=== PATIENT | female | born 1960 | race Caucasian/White ===

== ENCOUNTER 2019-06-26 13:06 | Emergency (ER) | payer OTHER ==
--- OUTSIDE RECORDS SUMMARY | 2019-06-26 13:12 | XMS REPORT | Continuity of Care Document ---
:1960 External Reference #:[id number] Author Name Josefa Barajas M.D. (transmitted by agent of provider Jossy Evans) Address [address] [place] [address] Care Team Providers Name Role Phone Esme Shepherd MD - Family Care Team Information [employer] [phone] Medicine Problems Description No Information Available Social History Type Date Description Comments Sex Unknown ETOH Use Denies alcohol use Tobacco Use Start: Unknown Patient has never smoked Smoking Status Reviewed: 05/03/19 Patient has never smoked Exercise Type/Frequency Does not exercise Allergies, Adverse Reactions, Alerts Active Allergies Reaction Severity Comments Date Demerol 11/13/2015 Medications Active Medications SIG Qnty Indications Ordering Provider Date Wellbutrin XL 1 by mouth every Unknown 300mg Tablets day ER 24HR Sertraline HCL 1 by mouth every Unknown 50mg Tablets day Medications Administered in Office Medication SIG Qnty Indications Ordering Provider Date Depomedrol 40MG Josefa Barajas M.D. 05/03/2019 Injection Depomedrol 40MG Josefa Barajas M.D. 05/03/2019 Injection Depomedrol 40MG Josefa Barajas M.D. 11/25/2016 Injection Depomedrol 40MG Josefa Barajas M.D. 04/07/2016 Injection Depomedrol 40MG PRAMOD Garza 11/13/2015 Injection Celestone 3 mg and 3mg Catalina Baker, 09/25/2010 Injection M.DGladis Immunizations Description No Information Available Vital Signs Date Vital Result Comment 05/03/2019 11:23am Height 68 inches 5'8" Weight 208.00 lb Heart Rate 53 /min BP Systolic 128 mmHg BP Diastolic 72 mmHg Body Temperature 97.6 F Pain Level 2 BMI (Body Mass Index) 31.6 kg/m2 11/25/2016 1:39pm Height 68 inches 5'8" Weight 230.00 lb Heart Rate 88 /min BP Systolic 126 mmHg BP Diastolic 76 mmHg Respiratory Rate 20 /min Body Temperature 97.9 F Pain Level 3 BMI (Body Mass Index) 35.0 kg/m2 Results Description No Information Available Procedures Date Code Description Status 05/03/2019 90098 Inject/Drain Joint/Bursa Small W/O US Completed 05/03/2019 24000 Inject Tendon Sheath Or Ligament Aponeurosis Eg Plantar Completed Fascia Medical Devices Description No Information Available Encounters Description No Information Available Assessments Date Code Description Provider 05/03/2019 M65.341 Trigger finger, right ring finger Josefa Barajas M.D. 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 Plan of Treatment 05/03/2019 - Josefa Barajas M.D.M65.341 Trigger finger, right ring fingerFollow up:Follow up: As rktalsL97.12 Unilateral primary osteoarthritis of first carpometacarpal joint, left handNew Xrays:Thumb Left, Ordered: M54.31 Sciatica, right sideReferral:Dewayne Wagner MD, Surgery, NeurologicalFollow up:Follow up: Functional Status Description No Information Available Mental Status Description No Information Available Referrals Refer to Reason for Referral Status Appt Date Dewayne Wagner MD right back/leg pain, numbness Created [address] [place] [phone]
[2019-06-26 13:19] VITALS: BP 130/82
--- NOTE | 2019-06-26 13:33 | UC ---
Minor Trauma HPI - HPI Summary HPI Summary: 59-year-old female who fell onto her right side on Tuesday night 4 days ago. She had some soreness to her right mid ribs but she has difficulty pinpointing the area today. She denies any shortness of breath. Did not hit her head nor does she complain of any neck pain. She says that she turned "just the right way" and had some pain in the right mid rib area. - History of Current Complaint Chief Complaint: UCTrauma Stated Complaint: RIGHT SIDE PAIN Time Seen by Provider: 06/26/19 13:15 Hx Obtained From: Patient ?: No Onset/Duration: Sudden Onset Onset Of Pain: Immediate Severity Initially: Moderate Severity Currently: Mild Pain Intensity: 5 Mechanism Of Injury: Fall From A Standing Position Aggravating Factor(s): Movement - If the patient moves "just serrate way" and she feels some pain to the right mid rib area. Alleviating Factor(s): Rest Associated Signs And Symptoms: Negative: Loss Of Consciousness, Ecchymosis, Swelling - Allergies/Home Medications Allergies/Adverse Reactions: Allergies Allergy/AdvReac Type Severity Reaction Status Date / Time meperidine Allergy Vomiting Verified 06/26/19 13:19 PMH/Surg Hx/FS Hx/Imm Hx Previously Healthy: Yes - Surgical History Surgical History: Yes Surgery Procedure, Year, and Place: gastric bypass surgery 2008 - Family History Known Family History: Positive: Non-Contributory - Social History Alcohol Use: None Substance Use Type: Marijuana Substance Use Comment - Amount & Last Used: occasionally Smoking Status (MU): Former Smoker When Did the Patient Quit Smoking/Using Tobacco: 30 yrs Review of Systems All Other Systems Reviewed And Are Negative: Yes Skin: Negative: Bruising Respiratory: Negative: Shortness Of Breath, Cough Musculoskeletal: Positive: Other: - Mild right mid rib pain, patient is unable to pinpoint the area of pain with palpation. Is Patient Immunocompromised?: No Physical Exam Triage Information Reviewed: Yes Appearance: Well-Appearing, No Pain Distress, Well-Nourished Vital Signs: Initial Vital Signs Temp 97.3 F 06/26/19 13:13 Pulse 45 06/26/19 13:13 Resp 16 06/26/19 13:13 BP 130/82 06/26/19 13:13 Pulse Ox 96 06/26/19 13:13 Vital Signs Reviewed: Yes Respiratory: Positive: Chest non-tender, Lungs clear, Normal breath sounds, No respiratory distress Cardiovascular: Positive: RRR, No Murmur, Pulses Normal, Brisk Capillary Refill Abdomen Description: Positive: Nontender, No Organomegaly, Soft. Negative: CVA Tenderness (R), CVA Tenderness (L), Distended, Guarding, Hepatomegaly, Splenomegaly Bowel Sounds: Positive: Present Musculoskeletal Exam: Normal Musculoskeletal: Positive: Other: - No bruising, erythema, deformity or swelling is noted. No crepitus. We are unable to locate the exact point of rib tenderness. Neurological Exam: Normal Psychological Exam: Normal Skin Exam: Normal Minor Trauma Course/Dx - Course Course Of Treatment: Rib x-rays:FINDINGS: There is a focal area of cortical irregularity in the right anterolateral fifth rib possibly representing a nondisplaced fracture. The heart is within normal limits in size. The lungs are clear. There is no evidence for pneumothorax or pleural effusion. IMPRESSION: POSSIBLE NONDISPLACED FRACTURE OF THE RIGHT ANTEROLATERAL FIFTH RIB, RECOMMEND CLINICAL CORRELATION FOR POINT TENDERNESS. Patient is comfortable here and in no distress. - Differential Dx/Diagnosis Provider Diagnosis: Fracture, rib Discharge ED - Sign-Out/Discharge Documenting (check all that apply): Patient Departure All imaging exams completed and their final reports reviewed: Yes - Discharge Plan Condition: Good Disposition: HOME Patient Education Materials: Rib Fracture (ED) Referrals: Esme Shepherd MD [Primary Care Provider] - Marry Quintero MD [Medical Doctor] - Additional Instructions: May take Tylenol every 4 hours and alternate with Motrin every 8 hours for pain. Avoid movements that cause pain. May apply heat to the sore area. Go to the emergency room if you develop any difficulty breathing or worsening symptoms. Follow-up with the orthopedist in 4 or 5 days for further care, you may want to call and make an appointment to be seen. - Billing Disposition and Condition Condition: GOOD Disposition: Home
== END 2019-06-26 14:04 | disposition home or self-care (01) ==
LOC: UCEAST 13:06
DX: S22.31XA Fracture of one rib, right side, initial encounter for closed fracture (principal); Z88.5 Allergy status to narcotic agent; Z87.891 Personal history of nicotine dependence; W19.XXXA Unspecified fall, initial encounter; Y92.9 Unspecified place or not applicable
CPT/HCPCS: 99211; G0463

== ENCOUNTER 2020-05-15 12:09 | Inpatient (IN) ==
[2020-05-15 13:53] LABS: ABS Eosinophils 0.1 10^3/ul (0-0.6); ABS Lymphocytes 1.1 10^3/ul (1.0-4.8); ABS Monocytes 0.6 10^3/ul (0-0.8); Eosinophil % 0.4 %; Hematocrit 35 % (35-47); Hemoglobin 11.7 g/dL (12.0-16.0); Lymphocyte % 7.4 %; Mean Corpuscular HGB Conc 34 g/dL (31-36); Mean Corpuscular Hemoglobin 31 pg (27-31); Mean Corpuscular Volume 94 fL (80-97); Platelet Count 274 10^3/uL (150-450); Red Blood Count 3.72 10^6 /uL (3.70-4.87); Red Cell Distribution Width 14 % (10-15); White Blood Count 14.8 10^3/uL (3.5-10.8)
[2020-05-15] MEDS ORDERED: Lactated Ringers 1000 ml BAG 1,000 ML IV SCH (14:00)
[2020-05-15 14:10] LABS: Lipase < 10 U/L (11.0-82.0)
[2020-05-15] MEDS: Ondansetron 4 mg VIAL 2 MG/ML 2 ml VIAL IV PRN ×2 (14:38→20:42)
[2020-05-15] MEDS: HYDROmorphone 1 MG/1 ML SYRINGE IV SLOW PU PRN ×2 (14:38→20:27)
[2020-05-15 14:58] LABS: Albumin 3.7 g/dL (3.2-5.2); Anion Gap 7 mmol/L (2-11); CO2 Carbon Dioxide 23 mmol/L (22-32); Calcium 8.8 mg/dL (8.6-10.3); Chloride 106 mmol/L (101-111); Indirect Bilirubin 0.6 mg/dL (0.3-1.0); Potassium 3.9 mmol/L (3.5-5.0); Sodium 136 mmol/L (135-145)
[2020-05-15 15:03] LABS: Blood Urea Nitrogen 15 mg/dL (6-24); Glucose 100 mg/dL (70-100)
[2020-05-15 15:04] LABS: ALT 16 U/L (7-52); AST 16 U/L (13-39); Albumin/Globulin Ratio 1.8 (1-3); Alkaline Phosphatase 48 U/L (34-104); BUN/Creatinine Ratio 28.3 (8-20); EGFR African American 143.4 (>60); EGFR Non-African American 118.5 (>60); Globulin 2.1 g/dL (2-4); Total Protein 5.8 g/dL (6.4-8.9)
[2020-05-15] MEDS ORDERED: Iohexol 300 (CONTRAST) 10 ML SDV IV ONE (19:07)
[2020-05-15 19:14] LABS: Urine Appearance Clear; Urine Bilirubin Negative (Negative); Urine Blood 1+ (Negative); Urine Color Yellow; Urine Glucose Negative (Negative); Urine Ketones Negative (Negative); Urine Nitrite Negative (Negative); Urine Protein Negative (Negative); Urine Specific Gravity 1.013 (1.010-1.030); Urine Urobilinogen Negative (Negative)
[2020-05-15 19:21] LABS: Urine Bacteria Absent (Absent); Urine Red Blood Cell 1+(3-5/hpf) (Absent); Urine Squamous Epithelial Cell Present (Absent); Urine White Blood Cell Absent (Absent)
[2020-05-15] MEDS ORDERED: Piperacillin/Tazobac ADVAN 3.375 GM in NS 0.9% 100 ml BAG 100 ML IV ONE (20:13)
[2020-05-15] MEDS: D5W 1/2 NS 1000 ml BAG 1,000 ML IV SCH (20:58)
[2020-05-15] MEDS ORDERED: Zosyn per Pharmacy NOTE FOLLOW UP SCH (21:00)
[2020-05-15] MEDS ORDERED: Rocuronium 50 mg VIAL 10 mg/ml 5 ml VIAL (50 mg) ONE (21:28)
[2020-05-15] MEDS ORDERED: Propofol 10 MG/ML 20 ML BTL ONE (21:28)
[2020-05-15] MEDS ORDERED: fentaNYL 100 mcg/2 ml 50 MCG/ML VIAL ONE (21:30)
[2020-05-15] MEDS ORDERED: Lidocaine 2% PF 5 ML VIAL ONE (21:32)
[2020-05-15] MEDS ORDERED: Bupivacaine 0.25% SDV 30 ML ONE (21:35)
[2020-05-15] MEDS ORDERED: DiMENhydriNATE IV 50 mg/ml 1 ml VIAL IV PUSH PRN (21:51)
[2020-05-15] MEDS ORDERED: Naloxone 0.4 mg VIAL 0.4 mg/ml 1 ml VIAL IV PRN (21:51)
[2020-05-15] MEDS ORDERED: fentaNYL 100 mcg/2 ml 50 MCG/ML VIAL IV PRN (21:51)
[2020-05-15] MEDS ORDERED: Pantoprazole VIAL 40 MG VIAL IV SCH (22:00)
[2020-05-15] MEDS ORDERED: Methylene Blue 0.5 % 50 MG/10 ML AMP IV ONE (22:45)
[2020-05-16] MEDS ORDERED: Ondansetron 4 mg VIAL 2 MG/ML 2 ml VIAL ONE ×2 (00:21→14:47)
[2020-05-16] MEDS: Ondansetron 4 mg VIAL 2 MG/ML 2 ml VIAL IV PRN ×3 (00:22→17:04)
[2020-05-16] MEDS: HYDROmorphone 1 MG/1 ML SYRINGE IV SLOW PU PRN ×4 (01:47→20:40)
[2020-05-16] MEDS: D5W 1/2 NS 1000 ml BAG 1,000 ML IV SCH ×3 (01:47→17:14)
[2020-05-16] MEDS: ZOSYN 3.375 GM Q8H per EXTENDED INFUSION IV SCH ×3 (01:55→17:09)
[2020-05-16 06:20] LABS: ABS Lymphocytes 0.6 10^3/ul (1.0-4.8); ABS Monocytes 0.3 10^3/ul (0-0.8); ABS Neutrophils 11.8 10^3/ul (1.5-7.7); Hematocrit 21 % (35-47); Hemoglobin 7.1 g/dL (12.0-16.0); Lymphocyte % 4.4 %; Mean Corpuscular HGB Conc 34 g/dL (31-36); Mean Corpuscular Hemoglobin 32 pg (27-31); Mean Corpuscular Volume 95 fL (80-97); Mean Platelet Volume 7.5 fL (7.4-10.4); Platelet Count 235 10^3/uL (150-450); Red Blood Count 2.22 10^6 /uL (3.70-4.87); Red Cell Distribution Width 14 % (10-15); White Blood Count 12.7 10^3/uL (3.5-10.8)
[2020-05-16 06:45] LABS: Albumin 2.9 g/dL (3.2-5.2); Albumin/Globulin Ratio 1.6 (1-3); BUN/Creatinine Ratio 46.2 (8-20); EGFR African American 146.6 (>60); EGFR Non-African American 121.1 (>60); Globulin 1.8 g/dL (2-4); Total Bilirubin 0.4 mg/dL (0.2-1.0); Total Protein 4.7 g/dL (6.4-8.9)
[2020-05-16 07:17] LABS: Total Iron Binding Capacity 200 mcg/dL (250-450); Transferrin 143 mg/dL (203-362)
[2020-05-16 07:19] LABS: % Iron Saturation 10 % (15-55); Iron < 20 ug/dL (50-212); Unsaturated Iron Binding < 185 ug/dL
[2020-05-16 07:40] LABS: Vitamin B12 188 pg/mL (180-914)
[2020-05-16 07:44] LABS: Vitamin D Total 25(OH) 35.3 ng/mL (20-50)
[2020-05-16 08:55] LABS: Hematocrit 20 % (35-47); Hemoglobin 6.7 g/dL (12.0-16.0)
[2020-05-16] MEDS ORDERED: Influenza VAC *QUAD* 2020-21* 0.5 ML SYRINGE IM ONE (09:00)
[2020-05-16] MEDS: Pantoprazole VIAL 40 MG VIAL IV SCH ×2 (09:42→21:01)
[2020-05-16 12:33] LABS: Hematocrit 19 % (35-47); Hemoglobin 6.4 g/dL (12.0-16.0)
[2020-05-16] MEDS ORDERED: Propofol 10 MG/ML 20 ML BTL ONE (13:10)
[2020-05-16] MEDS ORDERED: Lidocaine 2% PF 5 ML VIAL ONE ×2 (13:11→13:52)
[2020-05-16] MEDS ORDERED: Buffered Lidocaine 1% SYRIN 1 ml INTRADERM ONE (13:34)
[2020-05-16] MEDS ORDERED: DiMENhydriNATE IV 50 mg/ml 1 ml VIAL IV PUSH PRN (13:37)
[2020-05-16] MEDS ORDERED: Acetaminophen IV 1 GM/100ML 1,000 MG/100 ML VIAL IVPB ONE (13:37)
[2020-05-16] MEDS ORDERED: Naloxone 0.4 mg VIAL 0.4 mg/ml 1 ml VIAL IV PRN (13:37)
[2020-05-16] MEDS ORDERED: fentaNYL 100 mcg/2 ml 50 MCG/ML VIAL IV PRN (13:37)
[2020-05-16] MEDS ORDERED: Phenylephrine IV 10 MG/ML 1 ml VIAL ONE (13:51)
[2020-05-16] MEDS ORDERED: Succinylcholine 200 mg VIAL 20 mg/ml 10 ml VIAL (200 mg) ONE (13:58)
[2020-05-16] MEDS ORDERED: Midazolam 2 mg/2 ml VIAL 1 mg/ml 2 ml VIAL (2 mg) ONE (13:59)
[2020-05-16] MEDS ORDERED: fentaNYL 100 mcg/2 ml 50 MCG/ML VIAL ONE (13:59)
[2020-05-16] MEDS ORDERED: Lactated Ringers 1000 ml BAG 1,000 ML IV SCH (14:00)
[2020-05-16] MEDS ORDERED: Dexamethasone IV 4 MG/ML VIAL 1 ml VIAL ONE (14:47)
[2020-05-16 16:50] LABS: Hematocrit 25 % (35-47); Hemoglobin 8.4 g/dL (12.0-16.0)
[2020-05-16] MEDS: Pantoprazole 80 mg in NS BAG 80 MG/250 ML BAG IV SCH (22:29)
[2020-05-17] MEDS: ZOSYN 3.375 GM Q8H per EXTENDED INFUSION IV SCH ×3 (01:00→16:31)
[2020-05-17] MEDS: D5W 1/2 NS 1000 ml BAG 1,000 ML IV SCH ×3 (03:20→23:13)
[2020-05-17] MEDS: HYDROmorphone 1 MG/1 ML SYRINGE IV SLOW PU PRN ×6 (03:26→21:48)
[2020-05-17 07:09] LABS: Hematocrit 23 % (35-47); Hemoglobin 8.1 g/dL (12.0-16.0)
[2020-05-17] MEDS: Sucralfate 1 gm SUSP 1 GM/10 ML UDC PO SCH ×4 (07:09→21:48)
[2020-05-17] MEDS: Pantoprazole 80 mg in NS BAG 80 MG/250 ML BAG IV SCH ×2 (08:57→19:22)
[2020-05-17] MEDS: Ondansetron 4 mg VIAL 2 MG/ML 2 ml VIAL IV PRN ×3 (12:46→21:48)
[2020-05-17 14:21] LABS: Hematocrit 21 % (35-47); Hemoglobin 7.4 g/dL (12.0-16.0)
[2020-05-17 20:48] LABS: ABS Eosinophils 0.1 10^3/ul (0-0.6); ABS Lymphocytes 0.9 10^3/ul (1.0-4.8); ABS Monocytes 0.3 10^3/ul (0-0.8); ABS Neutrophils 3.9 10^3/ul (1.5-7.7); Eosinophil % 2.6 %; Hematocrit 22 % (35-47); Hemoglobin 7.6 g/dL (12.0-16.0); Lymphocyte % 17.7 %; Mean Corpuscular HGB Conc 35 g/dL (31-36); Mean Corpuscular Hemoglobin 32 pg (27-31); Mean Corpuscular Volume 93 fL (80-97); Mean Platelet Volume 7.4 fL (7.4-10.4); Platelet Count 174 10^3/uL (150-450); Red Blood Count 2.36 10^6 /uL (3.70-4.87); Red Cell Distribution Width 14 % (10-15); White Blood Count 5.2 10^3/uL (3.5-10.8)
[2020-05-17 21:11] LABS: BUN/Creatinine Ratio 14.8 (8-20); EGFR African American 140.3 (>60); Potassium 3.5 mmol/L (3.5-5.0)
[2020-05-18] MEDS: ZOSYN 3.375 GM Q8H per EXTENDED INFUSION IV SCH ×3 (01:27→17:06)
[2020-05-18 06:03] LABS: ABS Eosinophils 0.2 10^3/ul (0-0.6); ABS Lymphocytes 1.1 10^3/ul (1.0-4.8); ABS Monocytes 0.3 10^3/ul (0-0.8); ABS Neutrophils 3.1 10^3/ul (1.5-7.7); Eosinophil % 3.3 %; Hematocrit 22 % (35-47); Hemoglobin 7.6 g/dL (12.0-16.0); Lymphocyte % 22.3 %; Mean Corpuscular HGB Conc 34 g/dL (31-36); Mean Corpuscular Hemoglobin 31 pg (27-31); Mean Corpuscular Volume 92 fL (80-97); Mean Platelet Volume 7.4 fL (7.4-10.4); Platelet Count 188 10^3/uL (150-450); Red Blood Count 2.42 10^6 /uL (3.70-4.87); Red Cell Distribution Width 14 % (10-15); White Blood Count 4.7 10^3/uL (3.5-10.8)
[2020-05-18 06:09] LABS: BUN/Creatinine Ratio 11.3 (8-20); Calcium 7.8 mg/dL (8.6-10.3); EGFR African American 143.4 (>60); EGFR Non-African American 118.5 (>60); Potassium 3.3 mmol/L (3.5-5.0)
[2020-05-18] MEDS: HYDROmorphone 1 MG/1 ML SYRINGE IV SLOW PU PRN (07:46)
[2020-05-18] MEDS: Ondansetron 4 mg VIAL 2 MG/ML 2 ml VIAL IV PRN ×2 (07:46→12:54)
[2020-05-18] MEDS: Sucralfate 1 gm SUSP 1 GM/10 ML UDC PO SCH ×4 (07:48→19:56)
[2020-05-18] MEDS: D5W 1/2 NS 1000 ml BAG 1,000 ML IV SCH (08:37)
[2020-05-18] MEDS: Pantoprazole 80 mg in NS BAG 80 MG/250 ML BAG IV SCH ×2 (08:37→19:09)
[2020-05-19] MEDS: ZOSYN 3.375 GM Q8H per EXTENDED INFUSION IV SCH (01:11)
[2020-05-19] MEDS: Pantoprazole 80 mg in NS BAG 80 MG/250 ML BAG IV SCH (05:33)
[2020-05-19] MEDS: Sucralfate 1 gm SUSP 1 GM/10 ML UDC PO SCH ×2 (07:48→12:26)
[2020-05-19 11:08] LABS: ABS Eosinophils 0.1 10^3/ul (0-0.6); ABS Monocytes 0.3 10^3/ul (0-0.8); ABS Neutrophils 3.9 10^3/ul (1.5-7.7); Eosinophil % 1.5 %; Hematocrit 25 % (35-47); Hemoglobin 8.5 g/dL (12.0-16.0); Lymphocyte % 18.6 %; Mean Corpuscular HGB Conc 34 g/dL (31-36); Mean Corpuscular Hemoglobin 32 pg (27-31); Mean Corpuscular Volume 92 fL (80-97); Mean Platelet Volume 7.5 fL (7.4-10.4); Platelet Count 262 10^3/uL (150-450); Red Cell Distribution Width 14 % (10-15); White Blood Count 5.3 10^3/uL (3.5-10.8)
[2020-05-19 11:16] LABS: Calcium 8.2 mg/dL (8.6-10.3); EGFR African American 153.3 (>60); EGFR Non-African American 126.7 (>60); Potassium 3.5 mmol/L (3.5-5.0)
[2020-05-19 11:59] VITALS: BP 134/57
[2020-05-21 22:12] LABS: Vitamin A, S 14.6 mcg/dL (32.5-78.0)
[2020-05-22 10:21] LABS: Vitamin E 9.8 mg/L (5.5 - 17.0)
== END 2020-05-19 15:15 | disposition home or self-care (01) | DRG 224 ==
LOC: SSU
PROVIDERS: ADMIT Surgery; ATTEND Surgery
PROC: O.GIEGD (2020-05-16 15:05)